=== PATIENT | female | born 1990 | race American Indian/Alaskan Native ===

== ENCOUNTER 2018-03-04 09:59 | Emergency (ER) | payer BC ==
[2018-03-04 10:14] VITALS: BMI 36.0
[2018-03-04 10:18] VITALS: TEMP 98.8
[2018-03-04] MEDS ORDERED: Famotidine 20mg/50ml Premix IVPB STA (10:44)
[2018-03-04] MEDS ORDERED: Alum-Mag Hydrox-Simethicone Susp (30 mL) PO STA (10:54)
[2018-03-04 11:20] LABS: PH,URINE 6.5 (4.7-8.0); URINE BILIRUBIN NEGATIVE (NEGATIVE); URINE BLOOD MODERATE (NEGATIVE); URINE GLUCOSE (UA) NEGATIVE (NEGATIVE); URINE LEUKOCYTE ESTERASE NEGATIVE Leu/uL (NEGATIVE); URINE PROTEIN NEGATIVE mg/dL (<30 mg/dL); URINE UROBILINOGEN 0.2 E.U./dL (<1 E.U./dL)
[2018-03-04 11:24] LABS: HCG,QUALITATIVE URINE NEGATIVE (NEGATIVE); URINE APPEARANCE CLEAR (CLEAR); URINE COLOR YELLOW (YELLOW)
[2018-03-04 11:32] LABS: URINE BACTERIA SMALL (NEG); URINE RBC 25 - 30 /hpf (0-2); URINE WBC 0 - 2 /hpf (0-6)
--- NOTE | 2018-03-04 11:49 | ED PDOC ---
Arrival/HPI - General Chief Complaint: GI Problem Time Seen by Provider: 03/04/18 10:22 Historian: Patient - History of Present Illness Narrative History of Present Illness (Text): 03/04/18 11:46 A 27 year old female, with no endorsed past medical history, presents to the emergency department for profuse nausea and vomiting more than 10+ episodes. The patient admits to being around sick contact as both of her children at home were recently positive for the flu. She states that she has associate left sided chest pain and cramping. The patient denies any fever, diarrhea, chills, or any other complaints at this time. Time/Duration: 24 hours Symptom Onset: Gradual Symptom Course: Worsening Quality: Other Severity Level: Mild Activities at Onset: Light Context: Home Past Medical History - Provider Review Nursing Documentation Reviewed: Yes - Infectious Disease Hx of Infectious Diseases: None - Tetanus Immunization Tetanus Immunization: Unknown - Past Medical History Past Medical History: No Previous - Cardiac Hx Cardiac Disorders: No - Pulmonary Hx Respiratory Disorders: No - Neurological Hx Neurological Disorder: No - HEENT Hx HEENT Disorder: No - Renal Hx Renal Disorder: No - Endocrine/Metabolic Hx Endocrine Disorders: No - Hematological/Oncological Hx Blood Disorders: No - Integumentary Hx Dermatological Disorder: No - Musculoskeletal/Rheumatological Hx Musculoskeletal Disorders: No Hx Falls: No - Gastrointestinal Hx Gastrointestinal Disorders: No - Genitourinary/Gynecological Hx Genitourinary Disorders: No - Psychiatric Hx Psychophysiologic Disorder: No Hx Substance Use: No - Surgical History Hx Appendectomy: Yes Hx Section: Yes - Anesthesia Hx Anesthesia: Yes Hx Anesthesia Reactions: No Hx Malignant Hyperthermia: No - Suicidal Assessment Feels Threatened In Home Enviroment: No Family/Social History - Physician Review Nursing Documentation Reviewed: Yes Family/Social History: No Known Family HX Smoking Status: Never Smoked Hx Alcohol Use: Yes Frequency of alcohol use: Socially Hx Substance Use: No Hx Substance Use Treatment: No Allergies/Home Meds Allergies/Adverse Reactions: Allergies No Known Allergies Allergy (Verified 05/28/16 09:29) Review of Systems - Physician Review All systems were reviewed & negative as marked: Yes - Review of Systems Constitutional: absent: Fevers, Other (chills) Gastrointestinal: Abdominal Pain, Nausea, Vomiting. absent: Diarrhea Physical Exam Vital Signs Reviewed: Yes Vital Signs Temp Pulse Resp BP Pulse Ox 03/04/18 12:56 100 H 18 129/78 100 03/04/18 10:02 98.8 F 109 H 16 111/73 100 Temperature: Afebrile Blood Pressure: Normal Pulse: Tachycardic Respiratory Rate: Normal Appearance: Positive for: Well-Appearing, Non-Toxic, Comfortable Pain Distress: None Mental Status: Positive for: Alert and Oriented X 3 - Systems Exam Head: Present: Atraumatic, Normocephalic Pupils: Present: PERRL Extroacular Muscles: Present: EOMI Conjunctiva: Present: Normal Mouth: Present: Dry Neck: Present: Normal Range of Motion Respiratory/Chest: Present: Clear to Auscultation, Good Air Exchange. No: Respiratory Distress, Accessory Muscle Use Cardiovascular: Present: Regular Rate and Rhythm, Normal S1, S2. No: Murmurs Abdomen: Present: Tenderness (mild epigastric tenderness ). No: Distention, Peritoneal Signs Back: Present: Normal Inspection Upper Extremity: Present: Normal Inspection. No: Cyanosis, Edema Lower Extremity: Present: Normal Inspection. No: Edema Neurological: Present: GCS=15, CN II-XII Intact, Speech Normal Skin: Present: Warm, Dry, Normal Color. No: Rashes Psychiatric: Present: Alert, Oriented x 3, Normal Insight, Normal Concentration Medical Decision Making ED Course and Treatment: 03/04/18 11:51 Impression: A 27 year old female with abdominal pain and vomiting. Differential Diagnosis included but are not limited to: Plan: -- Labs -- Reglan, Pepcid, Maalox -- Reassess and disposition Progress Notes: 03/04/18 13:23 labs wnl, s/p analgesics/antiemetics/ pt feeling better Po challenge passed. educated as to discharge /return directions, and slow diet advancement - Lab Interpretations Lab Results: 03/04/18 11:40 03/04/18 11:40 Lab Results 03/04/18 11:40: Sodium 142, Potassium 4.2, Chloride 106, Carbon Dioxide 25, Anion Gap 16, BUN 13, Creatinine 0.7, Est GFR ( Amer) > 60, Est GFR (Non- Af Amer) > 60, Random Glucose 99, Calcium 8.8, Total Bilirubin 0.7, AST 19, ALT 32, Alkaline Phosphatase 74, Total Protein 8.1, Albumin 4.4, Globulin 3.7, Albumin/Globulin Ratio 1.2, Lipase 72 05/05/18 11:40: PT 13.5 H, INR 1.17 H, APTT 31.1 03/04/18 11:40: WBC 10.5 D, RBC 4.18, Hgb 12.0, Hct 36.3, MCV 86.8, MCH 28.7, MCHC 33.1, RDW 14.0, Plt Count 309, MPV 10.0, Gran % 90.5 H, Lymph % (Auto) 6.1 L, Owen % (Auto) 3.3, Eos % (Auto) 0.1 L, Baso % (Auto) 0.0, Gran # 9.46 H, Lymph # (Auto) 0.6 L, Owen # (Auto) 0.4, Eos # (Auto) 0.0, Baso # (Auto) 0.00, Neutrophils % (Manual) 92 H, Lymphocytes % (Manual) 4 L, Monocytes % (Manual) 4 , Platelet Evaluation Normal 03/04/18 10:45: Urine Color Yellow, Urine Appearance Clear, Urine pH 6.5, Ur Specific [place] 1.015, Urine Protein Negative, Urine Glucose (UA) Negative, Urine Ketones Negative, Urine Blood Moderate H, Urine Nitrate Negative, Urine Bilirubin Negative, Urine Urobilinogen 0.2, Ur Leukocyte Esterase Negative, Urine RBC 25 - 30, Urine WBC 0 - 2, Ur Epithelial Cells 1 - 3, Urine Bacteria Small, Urine HCG, Qual Negative - Medication Orders Current Medication Orders: Discontinued Medications Al Hydrox/Mg Hydrox/Simethicone (Maalox Plus 30 Ml) 30 ml PO STAT STA Stop: 03/04/18 10:55 Last Admin: 03/04/18 11:43 Dose: 30 ml Diphenhydramine HCl (Benadryl) 25 mg IVP STAT STA Stop: 03/04/18 11:59 Last Admin: 03/04/18 12:07 Dose: 25 mg IVP Administration Document 03/04/18 12:07 CAST (Rec: 03/04/18 12:07 [facility] [id number]) Charges for Administration # of IVP Administrations 1 Famotidine (Pepcid 20mg/50ml Premix) 20 mg IVPB STAT STA Stop: 03/04/18 10:45 Last Admin: 03/04/18 11:43 Dose: 20 mg eMAR Start Stop Document 03/04/18 11:43 [email or web address] (Rec: 03/04/18 11:43 [email or web address] [id number]) Intravenous Solution Start Date 03/04/18 Start Time 11:43 End Date 03/04/18 Metoclopramide HCl (Reglan) 10 mg IVP STAT STA Stop: 03/04/18 10:45 Last Admin: 03/04/18 11:43 Dose: 10 mg IVP Administration Document 03/04/18 11:43 [email or web address] (Rec: 03/04/18 11:43 [email or web address] [id number]) Charges for Administration # of IVP Administrations 1 - Scribe Statement The provider has reviewed the documentation as recorded by the Astrid Arriaga Provider Scribe Attestation: All medical record entries made by the Scribe were at my direction and personally dictated by me. I have reviewed the chart and agree that the record accurately reflects my personal performance of the history, physical exam, medical decision making, and the department course for this patient. I have also personally directed, reviewed, and agree with the discharge instructions and disposition. Disposition/Present on Arrival - Present on Arrival Any Indicators Present on Arrival: No History of DVT/PE: No History of Uncontrolled Diabetes: No Urinary Catheter: No History of Decub. Ulcer: No History Surgical Site Infection Following: None - Disposition Have Diagnosis and Disposition been Completed?: Yes Diagnosis: Gastritis and duodenitis Disposition: HOME/ ROUTINE Disposition Time: 13:25 Patient Plan: Discharge Patient Problems: Current Active Problems Problem Status Onset Gastritis and duodenitis Acute Condition: IMPROVED Print Language: BENGALI Additional Instructions: while with acute infectious gastritis you must 1) avoid large meals 2) meat 3) fatty, greasy foods 4) coffee, alcohol , chocolate , spicy foods. DO eat simple bland foods such as bananas/crackers/toast/ apple sauce/papayas clear brothy soups, water, water, water, herbal teas such as gary/peppermint and then slowly advance your diet back to regular fare Take the prescribed rx only as needed. Return if your symptoms worsen especially if vomiting or pooping blood, or fever and worsiening abdominal pain. Prescriptions: Famotidine [Pepcid] 20 mg PO BID PRN #20 tab PRN Reason: Dyspepsia Ondansetron ODT [Zofran ODT] 4 mg PO Q8 PRN #9 odt PRN Reason: Nausea/Vomiting Forms: [facility] (Sami), WORK NOTE
[2018-03-04 11:54] LABS: ALB/GLOB RATIO 1.2 (1.1-1.8); ALBUMIN 4.4 g/dL (3.0-4.8); ALT/SGPT 32 U/L (7-56); AST/SGOT 19 U/L (14-36); BLOOD UREA NITROGEN 13 mg/dL (7-21); CALCIUM 8.8 mg/dL (8.4-10.5); GFR AFRICAN-AMERICAN > 60; GFR NON-AFRICAN AMERICAN > 60; LIPASE 72 U/L (23-300)
[2018-03-04] MEDS ORDERED: DiphenhydrAMINE 50 mg/ml Inj ONE (11:57)
[2018-03-04] MEDS ORDERED: DiphenhydrAMINE 50 mg/ml Inj IVP STA (11:58)
[2018-03-04 12:02] LABS: EOS % 0.1 % (1.5-5.0); GRAN # 9.46 (1.4-6.5); GRAN % 90.5 % (50.0-68.0); LYMPH # 0.6 (1.2-3.4); LYMPH % 6.1 % (22.0-35.0); MEAN CELL VOLUME 86.8 fl (80.0-105.0); MEAN CORPUSCULAR HEMOGLOBIN 28.7 pg (25.0-35.0); MEAN CORPUSCULAR HGB CONC 33.1 g/dl (31.0-37.0); MONO # 0.4 (0.1-0.6); MONO % 3.3 % (1.0-6.0); PLATELET COUNT 309 10^3/uL (120.0-450.0); RBC 4.18 10^6/uL (3.5-6.1); WHITE BLOOD COUNT 10.5 10^3/ul (4.5-11.0)
[2018-03-04 12:08] LABS: INR 1.17 (0.93-1.08); PARTIAL THROMBOPLASTIN TIME 31.1 Seconds (25.1-36.5); PROTHROMBIN TIME 13.5 SECONDS (9.4-12.5)
[2018-03-04 12:21] LABS: LYMPHOCYTE 4 % (22.0-35.0); MONOCYTE 4 % (1.0-6.0); NEUTROPHIL 92 % (50.0-70.0); PLATELET ESTIMATE NORMAL (NORMAL)
[2018-03-04 12:56] VITALS: BP 129/78; PULSE 100
[2018-03-04 14:07] VITALS: RESP 19; O2SAT 99
== END 2018-03-04 14:09 | disposition home or self-care (01) ==
LOC: ED 09:59
DX: K29.70 Gastritis, unspecified, without bleeding (principal); K29.80 Duodenitis without bleeding
CPT/HCPCS: 80053; 81001; 83690; 84703; 85025; 85610; 85730; 87086; 96374; 96375; 99283; J1200; J2765

== ENCOUNTER 2018-05-22 09:53 | Emergency (ER) | payer BC ==
[2018-05-22 09:59] VITALS: BMI 35.2
[2018-05-22 10:00] VITALS: BP 126/83; PULSE 76; RESP 18; TEMP 98.6; O2SAT 97
--- NOTE | 2018-05-22 10:21 | ED PDOC ---
Arrival/HPI - General Chief Complaint: Lower Extremity Problem/Injury Time Seen by Provider: 05/22/18 10:15 Historian: Patient - History of Present Illness Narrative History of Present Illness (Text): 05/22/18 10:16 28 y/o female, pmh including gastritis, nkda, c/o rt. knee pain s/p slipped on the rain and fall to the knee yesterday. Aching pain, aggravated by walking, no numbness or tingling, no rash, no skin breaking, no calf or hip pain, no other medical or psychological complaints. Past Medical History - Provider Review Nursing Documentation Reviewed: Yes - Infectious Disease Hx of Infectious Diseases: None - Tetanus Immunization Tetanus Immunization: Unknown - Past Medical History Past Medical History: No Previous - Cardiac Hx Cardiac Disorders: No - Pulmonary Hx Respiratory Disorders: No - Neurological Hx Neurological Disorder: No - HEENT Hx HEENT Disorder: No - Renal Hx Renal Disorder: No - Endocrine/Metabolic Hx Endocrine Disorders: No - Hematological/Oncological Hx Blood Disorders: No - Integumentary Hx Dermatological Disorder: No - Musculoskeletal/Rheumatological Hx Musculoskeletal Disorders: No Hx Falls: No - Gastrointestinal Hx Gastrointestinal Disorders: No - Genitourinary/Gynecological Hx Genitourinary Disorders: No - Psychiatric Hx Psychophysiologic Disorder: No Hx Substance Use: No - Surgical History Hx Appendectomy: Yes Hx Section: Yes - Anesthesia Hx Anesthesia: Yes Hx Anesthesia Reactions: No Hx Malignant Hyperthermia: No - Suicidal Assessment Feels Threatened In Home Enviroment: No Family/Social History - Physician Review Nursing Documentation Reviewed: Yes Family/Social History: Unknown Family HX Smoking Status: Never Smoked Hx Alcohol Use: Yes Hx Substance Use: No Hx Substance Use Treatment: No Allergies/Home Meds Allergies/Adverse Reactions: Allergies No Known Allergies Allergy (Verified 05/28/16 09:29) Review of Systems - Review of Systems Constitutional: absent: Fatigue, Fevers Eyes: absent: Vision Changes ENT: absent: Hearing Changes Respiratory: absent: SOB, Cough Cardiovascular: absent: Chest Pain Gastrointestinal: absent: Abdominal Pain, Nausea, Vomiting Musculoskeletal: Arthralgias. absent: Back Pain, Neck Pain Skin: absent: Rash, Pruritis, Skin Lesions Neurological: absent: Headache, Dizziness Psychiatric: absent: Anxiety, Depression, Suicidal Ideation Physical Exam Vital Signs Reviewed: Yes Vital Signs Temp Pulse Resp BP Pulse Ox 07/23/18 09:59 98.6 F 76 18 126/83 97 Temperature: Afebrile Blood Pressure: Normal Pulse: Regular Respiratory Rate: Normal Appearance: Positive for: Well-Appearing, Non-Toxic, Comfortable Pain Distress: Mild Mental Status: Positive for: Alert and Oriented X 3 - Systems Exam Head: Present: Atraumatic, Normocephalic Pupils: Present: PERRL Extroacular Muscles: Present: EOMI Conjunctiva: Present: Normal Mouth: Present: Moist Mucous Membranes Neck: Present: Normal Range of Motion Respiratory/Chest: Present: Clear to Auscultation, Good Air Exchange. No: Respiratory Distress, Accessory Muscle Use Cardiovascular: Present: Regular Rate and Rhythm, Normal S1, S2. No: Murmurs Abdomen: No: Tenderness, Distention, Peritoneal Signs Back: Present: Normal Inspection Upper Extremity: Present: Normal Inspection. No: Cyanosis, Edema Lower Extremity: Present: Normal Inspection, Other (Rt. knee: no swelling, mild +ttp on the medial aspect, no crepitus, negative balbir and vu signs, ROm without limitation, sensation intact, motor 5/5, +DPPT pulses, capillary refill < 2 seconds, neurovascular intact. ). No: Edema Neurological: Present: GCS=15, CN II-XII Intact, Speech Normal Skin: Present: Warm, Dry, Normal Color. No: Rashes Psychiatric: Present: Alert, Oriented x 3, Normal Insight, Normal Concentration Medical Decision Making ED Course and Treatment: 05/22/18 10:28 -Rt. knee xray -pt. refused pain med 05/22/18 11:04 -urine hcg is negative -xray show -yvon wrap applied with neurovascular intact, crutches. -Discharge home with yvon wrap, crutches, tylenol, ice compression, weight bearing as tolerated, return to the ER for any new or worsening signs or symptoms. - RAD Interpretation Radiology Orders: 05/22/18 10:26 KNEE W PATELLA RIGHT 3 VIEW [RAD] Stat Date of service: 05/22/2018 PROCEDURE: Right Knee and patella Radiographs. HISTORY: fall, knee pain COMPARISON: None. FINDINGS: BONES: Normal. No fracture. JOINTS: Normal. No osteoarthritis. JOINT EFFUSION: None. OTHER FINDINGS: None. IMPRESSION: Normal radiographs of the right knee. Furnace Process Supervisor: Radiologist - PA / [employer] / Resident Statement MD/DO has reviewed & agrees with the documentation as recorded. Disposition/Present on Arrival - Present on Arrival Any Indicators Present on Arrival: No History of DVT/PE: No History of Uncontrolled Diabetes: No Urinary Catheter: No History of Decub. Ulcer: No History Surgical Site Infection Following: None - Disposition Have Diagnosis and Disposition been Completed?: Yes Diagnosis: Knee injury, Knee pain Disposition: HOME/ ROUTINE Disposition Time: 10:29 Patient Plan: Discharge Patient Problems: Current Active Problems Problem Status Onset Knee injury Acute Condition: GOOD Additional Instructions: -Discharge home with yvon wrap, crutches, tylenol, ice compression, weight bearing as tolerated, return to the ER for any new or worsening signs or symptoms. Prescriptions: Acetaminophen 2 tab PO QID PRN #30 tab PRN Reason: Other Referrals: Yao Lee DO [Staff Provider] - Follow up with primary Forms: WORK NOTE
--- NOTE | 2018-05-22 11:02 | RAD ---
Date of service: 05/22/2018 PROCEDURE: Right Knee and patella Radiographs. HISTORY: fall, knee pain COMPARISON: None. FINDINGS: BONES: Normal. No fracture. JOINTS: Normal. No osteoarthritis. JOINT EFFUSION: None. OTHER FINDINGS: None. IMPRESSION: Normal radiographs of the right knee.
== END 2018-05-22 11:13 | disposition home or self-care (01) ==
LOC: ED 09:53
DX: M25.561 Pain in right knee (principal); S89.91XA Unspecified injury of right lower leg, initial encounter; W01.0XXA Fall on same level from slipping, tripping and stumbling without subsequent striking against object, initial encounter

== ENCOUNTER 2018-07-25 08:53 | Emergency (ER) | payer BC ==
[2018-07-25 14:01] VITALS: BMI 36.0
[2018-07-25 14:03] VITALS: BP 135/74; PULSE 82; RESP 16; TEMP 99.1; O2SAT 100
== END 2018-07-25 10:20 | disposition home or self-care (01) ==
LOC: ED 08:53
DX: J03.90 Acute tonsillitis, unspecified (principal)